=== PATIENT | female | born 2000 | race Caucasian/White ===

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

== ENCOUNTER 2018-11-14 21:06 | Emergency (ER) | payer BC ==
[~2018-11-14 21:06] MED LIST: HYDROmorphone HCL/PF 1 MG/ML VIAL ONE
[2018-11-14] MEDS ORDERED: SULFAMETHOXAZOLE/TRIMETHOPRIM 800/160MG TAB PO ONE (21:20)
[2018-11-14] MEDS ORDERED: CLINDAMYCIN HCL 150 MG CAPSULE PO ONE (21:20)
== END 2018-11-14 21:52 ==
LOC: ED 21:06
DX: S61.451A Open bite of right hand, initial encounter (principal); W55.01XA Bitten by cat, initial encounter; Y93.9 Activity, unspecified; Y92.9 Unspecified place or not applicable; Y99.8 Other external cause status
CPT/HCPCS: 99283; A9270; J1170; J7030